=== PATIENT | female | born 1995 | race Caucasian/White ===

== ENCOUNTER 2021-12-03 21:43 | Emergency (ER) | payer SELFPAY ==
[2021-12-03 23:44] LABS: Absolute Lymphocytes (CBC) 2.4 K/uL (0.7-4.9); Hematocrit 39.1 % (36.0-45.0); Lymphocytes % 30.7 % (15.3-44.8); MPV 9.5 fL (7.6-11.3); RBC Red Blood Cell Count 5.08 M/uL (3.86-4.86)
[2021-12-03 23:48] LABS: Protime INR 1.04
--- NOTE | 2021-12-04 01:08 | ER ---
Nurse's Notes [facility] Name: Kerry Pugh Age: 26 yrs Sex: Female : 1995 Arrival Date: 12/03/2021 Time: 21:48 Bed 6 Private MD: Diagnosis: Major depressive disorder, recurrent, mild;Suicidal ideations;UTI/ Urinary tract infection, site not specified Presentation: 12/03 21:55 Chief complaint: Patient states: Pt states, "I just don't want to live anymore." Denies ld1 attempting suicide, reporting suicidal ideation. Want's to receive help before "I do something stupid." Pt currently at [facility] for IV drug use rehab. Coronavirus screen: At this time, the client does not indicate any symptoms associated with coronavirus-19. Ebola Screen: No symptoms or risks identified at this time. Initial Sepsis Screen: Does the patient meet any 2 criteria? No. Patient's initial sepsis screen is negative. Does the patient have a suspected source of infection? No. Patient's initial sepsis screen is negative. Risk Assessment: Do you want to hurt yourself or someone else? Patient reports no desire to harm self or others. Onset of symptoms was December 03, 2021. 21:55 Method Of Arrival: Ambulatory ld1 21:55 Acuity: ERIN 2 ld1 Triage Assessment: 21:57 General: Appears in no apparent distress. comfortable, Behavior is calm, cooperative, ld1 appropriate for age. Pain: Denies pain. Neuro: Level of Consciousness is awake, alert, obeys commands, Oriented to person, place, time, situation. Respiratory: Airway is patent Respiratory effort is even, unlabored, Respiratory pattern is regular, symmetrical. GI: Abdomen is round non-distended. 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 - Social history:: Smoking status: Patient denies any tobacco usage or history of. Screenin:00 Abuse screen: Denies threats or abuse. Nutritional screening: No deficits noted. vc1 Tuberculosis screening: No symptoms or risk factors identified. Fall Risk None identified. Assessment: 23:00 General: Appears in no apparent distress. uncomfortable, Behavior is cooperative, vc1 appropriate for age, flat. Pain: Denies pain. Neuro: Level of Consciousness is awake, alert, obeys commands, Oriented to person, place, time, situation, Appropriate for age. Cardiovascular: No deficits noted. Respiratory: Airway is patent Respiratory effort is even, unlabored, Respiratory pattern is regular, symmetrical. GI: No deficits noted. : No deficits noted. 12/04 00:00 Reassessment: Patient and/or family updated on plan of care and expected duration. Pain vc1 level reassessed. Patient is alert, oriented x 3, equal unlabored respirations, skin warm/dry/pink. 01:00 Reassessment: pt discharge pending chemistry results. vc1 01:00 Reassessment: Patient and/or family updated on plan of care and expected duration. Pain vc1 level reassessed. Patient is alert, oriented x 3, equal unlabored respirations, skin warm/dry/pink. 02:00 Reassessment: Still awaiting chemistry results, lab unable to give a time. Pt laying vc1 with eyes closed resting comfortable, chest rising and falling equally. 02:00 Reassessment: Patient and/or family updated on plan of care and expected duration. Pain vc1 level reassessed. Patient is alert, oriented x 3, equal unlabored respirations, skin warm/dry/pink. 03:00 Reassessment: No changes from previously documented assessment. Patient and/or family vc1 updated on plan of care and expected duration. Pain level reassessed. Patient is alert, oriented x 3, equal unlabored respirations, skin warm/dry/pink. 04:30 Reassessment: Patient and/or family updated on plan of care and expected duration. Pain vc1 level reassessed. Patient is alert, oriented x 3, equal unlabored respirations, skin warm/dry/pink. 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 Patient denies pain at this time. Patient states feeling better. Patient states symptoms have improved. Psych: 12/03 23:00 [place] Suicide Severity Screening: In the past month, have you wished you were vc1 or wished you could go to sleep and not wake up? Patient responds "yes." "In the past month, have you actually had any thoughts of killing yourself?" Patient responds "no." "In your lifetime, have you ever done anything, started to do anything, or prepared to do anything to end your life?" Patient responds "yes." Patient reports suicidal intent occurred greater than 3 months prior. Subjective: Patient's mood is sad, Delusions are denied, Hallucinations are denied Having thoughts of suicide. Denies suicidal plan. Pt states she is having thoughts but she doesn't want to because she is trying to get clean for her 2 kids. 23:00 Objective: Patient is cooperative, Speech is soft, Affect is flat. Objective: Patient nick has mutilated themselves by Pt stated she was thinking about "cutting" herself to help the thoughts go away. Interventions:. Safety Checks: Personal items have been removed. Door is open. No visitors are present at this time. Patient uses methamphetamines Last use was 21 days ago. Commitment: Patient will be a voluntary commitment. Vital Signs: 21:55 BP 104 / 74; Pulse 85; Resp 18; Temp 97.9(TE); Pulse Ox 97% on R/A; Weight 104.33 kg; ld1 Height 5 ft. 8 in. (172.72 cm); Pain 0/10; 12/04 00:00 BP 108 / 62; Pulse 84; Resp 18; Pulse Ox 99% on R/A; vc1 04:00 BP 104 / 64; Pulse 82; Resp 18; Pulse Ox 98% on R/A; vc1 12/03 21:55 Body Mass Index 34.97 (104.33 kg, 172.72 cm) ld1 ED Course: 12/03 21:48 Patient arrived in ED. kz 21:57 Triage completed. ld1 21:57 Arm band placed on right wrist. ld1 22:00 Placed in gown. Patient is placed in psych hold. vc1 23:00 Angel Ramirez MD is Attending Physician. [facility] 23:08 Safety checks: Items removed: yes. Door open/sign placed on door: yes. Warm blanket wm given. Sitter at bedside. 23:18 Meredith Robertson RN is Primary Nurse. [facility] 12/04 01:00 Head of bed elevated. Assisted to bathroom. 01:06 Alexander Mejia MD is Referral Physician. [facility] 01:18 Door closed. Lights dimmed. 04:45 No provider procedures requiring assistance completed. IV discontinued, intact, vc1 bleeding controlled, No redness/swelling at site. Pressure dressing applied. Administered Medications: 01:46 Drug: Rocephin (cefTRIAXone) 1 grams Route: IV; Rate: per protocol; Site: right vc1 antecubital; 04:39 Follow up: Response: No adverse reaction; Marked relief of symptoms; IV Status: vc1 Completed infusion; IV Intake: 50ml 01:46 Drug: Cipro (ciprofloxacin) 500 mg Route: PO; vc1 04:39 Follow up: Response: No adverse reaction vc1 Intake: 04:39 IV: 50ml; Total: 50ml. vc1 Outcome: 01:07 Discharge ordered by . [facility] 04:47 Discharged to [facility] vc1 04:47 Condition: good 04:47 Discharge instructions given to patient, Instructed on discharge instructions, follow up and referral plans. medication usage, Demonstrated understanding of instructions, follow-up care, medications, Prescriptions given X 1. 04:48 Patient left the ED. vc1 Signatures: Angel Ramirez MD MD cha Dibbern, Lauren RN RN ld1 Mariaa Yan Meredith Robertson RN RN vc1 Janette Dowling Corrections: (The following items were deleted from the chart) 04 21:58 21:57 Allergies: No Known Allergies; 1 ld1 21:58 21:57 PSHx: Appendectomy; [facility] ld1 12/04 00:46 00:42 Safety checks: Door open/sign placed on door: yes. [facility] 00:46 00:42 Security at bedside. [facility] 00:46 00:42 Police notified at 00:22 [facility]
--- NOTE | 2021-12-04 01:08 | EDPHYS ---
Physician Documentation [facility] Name: Kerry Pugh Age: 26 yrs Sex: Female : 1995 Arrival Date: 12/03/2021 Time: 21:48 Bed 6 Private MD: ED Physician Angel Ramirez HPI: 12/04 01:03 This 26 yrs old Female presents to ER via Ambulatory with complaints of home Suicidal Ideation. 01:03 The patient presents to the emergency department with depression, suicide ideation, but home the patient has no formulated plan. Onset: The symptoms/episode began/occurred just prior to arrival. Past psychiatric history: Prior diagnosis: bipolar disorder, depression, Psychiatric medications include: none. Associated signs and symptoms: The patient has no apparent associated signs or symptoms. Severity of symptoms: At their worst the symptoms were mild in the emergency department the symptoms are unchanged. The patient has not experienced similar symptoms in the past. 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 - Social history:: Smoking status: Patient denies any tobacco usage or history of. ROS: 12/04 01:04 Constitutional: Negative for fever, chills, and weight loss, Eyes: Negative for injury, home pain, redness, and discharge, ENT: Negative for injury, pain, and discharge, Neck: Negative for injury, pain, and swelling, Cardiovascular: Negative for chest pain, palpitations, and edema, Respiratory: Negative for shortness of breath, cough, wheezing, and pleuritic chest pain, Abdomen/GI: Negative for abdominal pain, nausea, vomiting, diarrhea, and constipation, Back: Negative for injury and pain, : Negative for injury, bleeding, discharge, and swelling, MS/Extremity: Negative for injury and deformity, Skin: Negative for injury, rash, and discoloration, Neuro: Negative for headache, weakness, numbness, tingling, and seizure, Allergy/Immunology: Negative for hives, rash, and allergies, Endocrine: Negative for neck swelling, polydipsia, polyuria, polyphagia, and marked weight changes, Hematologic/Lymphatic: Negative for swollen nodes, abnormal bleeding, and unusual bruising. Psych: Positive for depression, suicidal ideation. Exam: 01:04 Constitutional: This is a well developed, well nourished patient who is awake, alert, home and in no acute distress. Head/Face: Normocephalic, atraumatic. Eyes: Pupils equal round and reactive to light, extra-ocular motions intact. Lids and lashes normal. Conjunctiva and sclera are non-icteric and not injected. Cornea within normal limits. Periorbital areas with no swelling, redness, or edema. ENT: Nares patent. No nasal discharge, no septal abnormalities noted. Tympanic membranes are normal and external auditory canals are clear. Oropharynx with no redness, swelling, or masses, exudates, or evidence of obstruction, uvula midline. Mucous membranes moist. Neck: Trachea midline, no thyromegaly or masses palpated, and no cervical lymphadenopathy. Supple, full range of motion without nuchal rigidity, or vertebral point tenderness. No Meningismus. Chest/axilla: Normal chest wall appearance and motion. Nontender with no deformity. No lesions are appreciated. Cardiovascular: Regular rate and rhythm with a normal S1 and S2. No gallops, murmurs, or rubs. Normal PMI, no JVD. No pulse deficits. Respiratory: Lungs have equal breath sounds bilaterally, clear to auscultation and percussion. No rales, rhonchi or wheezes noted. No increased work of breathing, no retractions or nasal flaring. Abdomen/GI: Soft, non-tender, with normal bowel sounds. No distension or tympany. No guarding or rebound. No evidence of tenderness throughout. Back: No spinal tenderness. No costovertebral tenderness. Full range of motion. Skin: Warm, dry with normal turgor. Normal color with no rashes, no lesions, and no evidence of cellulitis. MS/ Extremity: Pulses equal, no cyanosis. Neurovascular intact. Full, normal range of motion. Neuro: Awake and alert, GCS 15, oriented to person, place, time, and situation. Cranial nerves II-XII grossly intact. Motor strength 5/5 in all extremities. Sensory grossly intact. Cerebellar exam normal. Normal gait. Psych: Awake, alert, with orientation to person, place and time. Behavior, mood, and affect are within normal limits. 01:04 Psych: Behavior/mood is pleasant, Affect is flat, Oriented to person, place, time, Patient has no thoughts/intents to harm self or others. Judgement / Insight is normal. Delusions/hallucinations are not present. 01:08 ECG was reviewed by the Attending Physician. [facility] Vital Signs: 12/03 21:55 BP 104 / 74; Pulse 85; Resp 18; Temp 97.9(TE); Pulse Ox 97% on R/A; Weight 104.33 kg; ld1 Height 5 ft. 8 in. (172.72 cm); Pain 0/10; 12/04 00:00 BP 108 / 62; Pulse 84; Resp 18; Pulse Ox 99% on R/A; vc1 04:00 BP 104 / 64; Pulse 82; Resp 18; Pulse Ox 98% on R/A; vc1 12/03 21:55 Body Mass Index 34.97 (104.33 kg, 172.72 cm) ld1 MDM: 12/03 23:00 Patient medically screened. [facility] 12/04 01:05 Differential diagnosis: acute psychotic break, depression, psychosis secondary to home non-compliance. Data reviewed: vital signs, nurses notes, lab test result(s). Data interpreted: shelter monitor: not applicable for this patient encounter. rate is 85 beats/min, rhythm is regular, Pulse oximetry: on room air is 97 %. Counseling: I had a detailed discussion with the patient and/or guardian regarding: the historical points, exam findings, and any diagnostic results supporting the discharge/admit diagnosis, lab results, the need for outpatient follow up, for definitive care, a psychiatrist. 12/03 23:00 Order name: Acetaminophen [facility] 12/03 23:00 Order name: Basic Metabolic Panel [facility] 12/03 23:00 Order name: CBC with Diff; Complete Time: : [facility] 12/03 23:00 Order name: ETOH Level; Complete Time: : [facility] 12/03 23:00 Order name: Hepatic Function [facility] 12/03 23:00 Order name: PT-INR; Complete Time: : [facility] 12/03 23:00 Order name: Ptt, Activated; Complete Time: : [facility] 12/03 23:00 Order name: Salicylate [facility] 12/03 23:00 Order name: Urine Drug Screen; Complete Time: 02:42 [facility] 12/04 01:17 Order name: Urine Dipstick-Ancillary; Complete Time: 01:18 EDMS 12/04 01:32 Order name: Urine --Ancillary (enter results) mw2 12/03 23:00 Order name: EKG; Complete Time: 23:00 [facility] 12/03 23:00 Order name: EKG - Nurse/Tech; Complete Time: 00:01 [facility] 12/03 23:00 Order name: IV Saline Lock; Complete Time: 00:01 [facility] 12/03 23:00 Order name: Labs collected and sent; Complete Time: 00:01 [facility] 12/03 23:00 Order name: Suicide Precautions; Complete Time: 00:01 [facility] 12/03 23:00 Order name: Suicide Screening ([place]); Complete Time: 00:01 [facility] 12/03 23:00 Order name: Urine Dipstick-Ancillary (obtain specimen); Complete Time: 01:46 [facility] 12/03 23:00 Order name: Urine Test (obtain specimen); Complete Time: 01:46 [facility] EC:08 Rate is 69 beats/min. Rhythm is regular. QRS [place] is Normal. DE interval is normal. QRS home interval is normal. QT interval is normal. No Q waves. T waves are Normal. No ST changes noted. Clinical impression: Normal ECG and No evidence of ischemia. Interpreted by me. Reviewed by me. Administered Medications: 01:46 Drug: Rocephin (cefTRIAXone) 1 grams Route: IV; Rate: per protocol; Site: right vc1 antecubital; 04:39 Follow up: Response: No adverse reaction; Marked relief of symptoms; IV Status: vc1 Completed infusion; IV Intake: 50ml 01:46 Drug: Cipro (ciprofloxacin) 500 mg Route: PO; vc1 04:39 Follow up: Response: No adverse reaction vc1 Disposition Summary: 12/04/21 01:07 Discharge Ordered Location: Home home Problem: new home Symptoms: have improved home Condition: Stable home Diagnosis - Major depressive disorder, recurrent, mild home - Suicidal ideations home - UTI/ Urinary tract infection, site not specified home Followup: home - With: Private Physician - When: 2 - 3 days - Reason: Recheck today's complaints, Continuance of care, Re-evaluation by your physician Followup: home - With: Alexander Mejia MD - When: 2 - 3 days - Reason: Recheck today's complaints, Re-evaluation by your physician Discharge Instructions: - Discharge Summary Sheet home - Urinary Tract Infection, Adult home - Suicidal Feelings: How to Help Yourself home - Helping Someone Who is Suicidal home - Persistent Depressive Disorder, Adult, [id number] home - Urinary Tract Infection, Adult, [id number] [facility] Forms: - Medication Reconciliation Form [facility] - Thank You Letter home - Antibiotic Education home - Prescription Opioid Use [facility] Prescriptions: - Cipro 500 mg Oral Tablet - take 1 tablet by ORAL route every 12 hours for 7 days; 14 tablet; Refills: 0, home Product Selection Permitted Signatures: Dispatcher [employer] EDAngel Cárdenas MD MD cha Dibbern, Lauren, RN RN ld1 Meredith Robertson RN RN vc1 Corrections: (The following items were deleted from the chart) 12/03 21:58 21:57 Allergies: No Known Allergies; ld1 ld1 21:58 21:57 PSHx: Appendectomy; ld1 ld1
[2021-12-04 01:17] LABS: Urine Blood Trace-intact (Negative); Urine Glucose Negative (Negative); Urine Protein Negative (Negative)
[2021-12-04 01:40] LABS: Barbiturates NEGATIVE (NEGATIVE); Benzodiazepines NEGATIVE (NEGATIVE); Cocaine NEGATIVE (NEGATIVE); METHAMPHETAM NEGATIVE (NEGATIVE); Methadone NEGATIVE (NEGATIVE); Opiates NEGATIVE (NEGATIVE); Phencyclidine NEGATIVE (NEGATIVE); THC Cannibis NEGATIVE (NEGATIVE)
[2021-12-04] MEDS ORDERED: CIPROFLOXACIN HCL 500 MG TAB ONE (01:40)
[2021-12-04] MEDS ORDERED: NA CHLORIDE 0.9% 50 ML ONE (01:40)
[2021-12-04] MEDS ORDERED: CEFTRIAXONE 1000 MG/VIAL ONE (01:40)
[2021-12-04 03:43] LABS: ALT/SGPT 24 U/L (12-78); AST/SGOT 17 U/L (15-37); Albumin 3.8 g/dL (3.4-5.0); Alkaline Phosphatase 100 U/L (45-117); BUN Blood Urea Nitrogen 18 mg/dL (7-18); Bicarbonate 26 mmol/L (21-32); Bilirubin Direct < 0.1 mg/dL (0-0.2); Bilirubin Total 0.1 mg/dL (0.2-1.0); Glucose Level 99 mg/dL (74-106); Potassium 3.9 mmol/L (3.5-5.1); Protein, Total 7.8 g/dL (6.4-8.2); Sodium Level 139 mmol/L (136-145)
[2021-12-04 14:32] VITALS: TEMP 97.9
[2021-12-04 14:35] VITALS: BP 104/64; O2SAT 98
== END 2021-12-04 04:48 | disposition home or self-care (01) ==
LOC: ER 21:43
DX: R45.851 Suicidal ideations (principal); F33.0 Major depressive disorder, recurrent, mild; N39.0 Urinary tract infection, site not specified; Z88.5 Allergy status to narcotic agent
CPT/HCPCS: 36415; 80048; 80076; 80307; 80320; 80329; 81003; 81025; 85025; 85610; 85730; 93005; 96365; 96366; 99284